=== PATIENT | male | born 1965 | race Caucasian/White ===

== ENCOUNTER 2021-06-11 20:24 | Emergency (ER) | payer OTHER ==
--- NOTE | 2021-06-11 20:52 | ED Physician Documentation ---
History of Present Illness - Stated complaint Stated Complaint: LEFT FIGER LAC - Chief complaint Chief Complaint: Laceration - Additonal information Additional information: 55-year-old male presents emergency department for evaluation of left middle finger pain after accidentally slamming it in a car door. He does have a distal laceration the fat pad. Normal sensation. Able to flex and extend at MCP PIP and DIP joints against resistance. Tetanus up-to-date within 6 years. Patient is right-hand dominant. Review of Systems Constitutional: reports: Reviewed and negative Throat: reports: Reviewed and negative Cardiac: reports: Reviewed and negative Respiratory: reports: Reviewed and negative GI: reports: Reviewed and negative Musculoskeletal: reports: Extremity pain (left middle finger.) PD PAST MEDICAL HISTORY - Present Medications Home Medications: Ambulatory Orders Medication Instructions Recorded Confirmed Atorvastatin Calcium 40 mg PO DAILY 06/11/21 06/11/21 Flecainide [Tambocar] 100 mg PO BID 06/11/21 06/11/21 dilTIAZem HCL [Diltiazem 24Hr ER 240 mg PO DAILY 06/11/21 06/11/21 (Xr)] - Allergies Allergies/Adverse Reactions: Allergies Allergy/AdvReac Type Severity Reaction Status Date / Time Penicillins Allergy Edema Verified 06/11/21 20:35 PD ED PE EXPANDED - Extremities Extremities: Left finger(s) ( Swelling and ecchymosis distal to the left middle finger. 2 cm laceration on the distal fat pad. Sensation is preserved. Normal flexion extension at MCP PIP and DIP joints against resistance.) Results - Vitals Vitals: Vital Signs - 24 hr 06/11/21 06/11/21 20:31 21:43 Temperature 36.7 C Heart Rate 98 85 Respiratory 18 14 Rate Blood Pressure 185/102 H 140/92 H O2 Saturation 98 97 Oxygen O2 Source Room air Departure - Departure Disposition: 01 Home, Self Care Clinical Impression: Laceration of left middle finger Qualifiers: Encounter type: initial encounter Damage to nail status: without damage Foreign body presence: without foreign body Qualified Code(s): S61.213A - Laceration without foreign body of left middle finger without damage to nail, initial encounter Condition: Stable Record reviewed to determine appropriate education?: Yes Instructions: ED Laceration All Comments: Your sutures should be removed in about 10 days. In general this laceration needs to be kept clean and dry. I do recommend that you gently wash with warm soap and water each day and apply thin layer of antibiotic ointment. If at any point you have concerns of infection such as fevers, redness, milky drainage then please return immediately to the ER for a 2nd evaluation.
[2021-06-11] MEDS ORDERED: BACITRACIN ZINC OINT 1 PACKET TOP STA (21:02)
[2021-06-11] MEDS ORDERED: lidocaine 1% 20 ML MDV SUBQ ONE (21:02)
--- NOTE | 2021-06-11 21:10 | XRAY Report ---
PROCEDURE: Finger(s) LT INDICATIONS: slammed in car door; r/o fx TECHNIQUE: AP hand, 3 views of the third finger(s) acquired. COMPARISON: None FINDINGS: Bones: No fractures or dislocations. No suspicious bony lesions. Soft tissues: No suspicious soft tissue calcifications. There is soft tissue swelling over the dist al phalanx of the third digit. No fracture or foreign body appears associated. IMPRESSION: Soft tissue swelling and mild irregularity suggesting some degree of compression injury and possible superimposed laceration at the distal aspect of the third digit. A fracture or foreign body is seen. Reviewed by: Bolivar Cason MD on 06/11/2021 9:08 PM PST Approved by: Bolivar Cason MD on 06/11/2021 9:08 PM PST Station ID: [id number]
[2021-06-11 21:44] VITALS: BP 140/92
== END 2021-06-11 21:51 | disposition home or self-care (01) ==
LOC: ED 20:24
DX: S61.213A Laceration without foreign body of left middle finger without damage to nail, initial encounter (principal); W23.1XXA Caught, crushed, jammed, or pinched between stationary objects, initial encounter; Y93.89 Activity, other specified
CPT/HCPCS: 12001; 73140; 99283; A9270